=== PATIENT | male | born 1975 | race Caucasian/White ===

== ENCOUNTER 2021-02-17 09:32 | Emergency (ER) | payer OTHER ==
[~2021-02-17] VITALS: Ht 188 cm; Wt 108.9 kg
[2021-02-17] MEDS ORDERED: Norco 5-325 Ta1 EACH PO (10:30)
[2021-02-17] MEDS ORDERED: PERM5TC TOP (10:32)
== END 2021-02-17 10:45 | disposition home or self-care (01) ==
LOC: ER 09:32
DX: B86 Scabies (principal); L25.8 Unspecified contact dermatitis due to other agents
CPT/HCPCS: 96372; 99282-25; J3301